=== PATIENT | female | born 2000 | race Caucasian/White ===

== ENCOUNTER 2022-12-09 18:52 | Emergency (ER) | payer OTHER, BC, SELFPAY ==
[2022-12-09 18:58] VITALS: BP 127/64; PULSE 108; RESP 18; TEMP 37.2; O2SAT 98; BMI 23.3
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
[2022-12-09 19:30] VITALS: BP 117/76; PULSE 96; RESP 18; O2SAT 98
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
== END 2022-12-09 19:48 | disposition home or self-care (01) ==
LOC: ED 19:24
PROVIDERS: Emergency Provider Emergency Medicine; PCP Pediatrics
DX: T23.201A Burn of second degree of right hand, unspecified site, initial encounter (principal); X15.2XXA Contact with hotplate, initial encounter
CPT/HCPCS: 99283

== ENCOUNTER 2024-03-04 07:44 | Day surgery (SDC) | payer BC, SELFPAY ==
[2024-03-04] VITALS (13 sets, daily range): BP systolic 91–133; BP diastolic 66–89; PULSE 76–124; RESP 16; TEMP 36.3–36.6; O2SAT 93–99; BMI 27.8
[2024-03-04 08:17] LABS: Ur HCG Qualitative* Negative (Negative)
--- NOTE | 2024-03-04 08:22 | W.PM.H&PU ---
History & Physical Update History & Physical Update H&P Reviewed and patient assessed: No changes noted H&P Updates: Kyeshawn continues to desire permanent sterilization. No interval changes since the last time we spoke in clinic. His parents are aware and I will be updated after the surgery. Plan is for bilateral salpingectomy. I will be performing a pap smear when he is under general anesthesia to minimize the # of conscious pelvic exam he'll need.
[2024-03-04 08:25] LABS: Hemoglobin* 14.3 gm/dL (12.0-16.0)
[2024-03-04] MEDS: LACTATED RINGERS 1000 ML 1,000 ML 100 ML IV ×2 (08:41→09:58)
[2024-03-04] MEDS: SODIUM CHLORIDE 0.9 % (FLUSH) 10 ML SYRINGE IVF (08:41)
--- NOTE | 2024-03-04 09:26 | W.ANESCHARGE ---
Anesthesia Charges Start Date/Time Anesthesia Start Date: 03/04/24 Anesthesia Start Time: 09:30 Stop Date/Time Anesthesia Stop Date: 03/04/24 Anesthesia Stop Time: 10:48
[2024-03-04] MEDS: BUPIVACAINE 0.5 %/EPI 1:200K 30 ML INJECTION (10:12)
--- NOTE | 2024-03-04 10:37 | PM.GYNPRLA ---
Procedure Pre-op/Post-op diagnoses: Pre-Op/Post-Op Diagnoses Operation Date: 03/04/24 09:20 <No data on this case meets the specified criteria> Procedure: Procedures Operation Date: 03/04/24 09:20 Actual Procedure Side Surgeon p Laparoscopic Bilateral Salpingectomy, PAP Smear Bilateral Amanda B MD [employer] Tender: China Garber Estimated blood loss (mL): 5 Anesthesia Type: General and Local Complications: none Specimen: other (1. Bilateral fallopian tube 2. Pap smear ) Findings: Exam under anesthesia: Mons normal, clitoris normal, urethral meatus normal. Labia minora and majora normal in appearance bilaterally. Perineum and anus normal appearance. Vaginal introitus normal appearance. Vaginal pink and well rugated with scant white discharge. Cervix pink and without lesion. Bimanual exam reveals uterus to be soft, nontender, mobile, anteverted, of normal size and texture. No palpable adnexal masses or tenderness. Laparoscopy: Disposition: PACU Narrative: Preoperative diagnosis: Keyshawn is a 23-year-old who desires permanent sterilization. Postoperative diagnosis: Same. Procedure: Laparoscopic bilateral salpingectomy, pap smear Anesthesia: General endotracheal, Local Urine output: 100 mL clear urine IVF: 1000 mL Procedure: Patient was taken to the operating room where general anesthetic was found to be adequate. She was placed in the dorsal lithotomy position and an exam under anesthesia was performed with findings stated above. She was then prepped and draped in a normal sterile manner. I had requested to do a pap smear prior to vaginal prep. Unfortunately, the prep was done prior to informing me to do the pap. Decision made to perform pap at the end of the procedure with the understanding that it might increase risk of insufficient results. A Guardado catheter was then placed. A large sponge stick was placed into the vagina to be used as a manipulator was then placed. Attention was then turned to performing the laparoscopic portion of the procedure. All incisions were injected with 1% lidocaine with epi prior to incision. A vertical 5 mm infraumbilical, incision, was made and a 5 mm trocar placed under direct visualization with the laparoscope. 5 mm camera was placed within the 5 mm Fios Kii trocar, and advanced under direct visualization through the anterior abdominal wall into the peritoneal cavity, while tenting up the anterior abdominal wall. The trocar was removed. The balloon was inflated, holding the port in place. Pneumoperitoneum was achieved. Survey of the abdomen and pelvis revealed the above-noted findings. Two additional port sites were created. The first was in the patient's left lower quadrant, just superomedial to the left ASIS. The second was a hand's breath superior to and slightly medial to the first. Each was infiltrated with small amount of lidocaine prior to incision. A 5 mm incision was made at each site, after assuring that large vessels were out of harm's way. A 5 mm Fios Kii port was inserted at each site, under direct visualization and without complication. The balloon on each of the 3 ports was inflated, holding each in place. The left fallopian tube was grasped with a sliding grasper. The left fallopian tube was removed from the broad ligament using the LigaSure dissecting forceps starting at the fimbriated end of the tube. Sequential pedicles were then formed to the level of the cornua. The tube was then removed at the cornua and removed from the abdomen through the left lower quadrant port. The right fallopian tube was removed in a similar manner. Excellent hemostasis was noted of all pedicles. The trocars were then removed under direct visualization. The CO2 gas was allowed to escape the infraumbilical port prior to its removal. All incisions were reapproximated using 4-0 Monocryl in a running subcuticular manner. Exofin was applied over each incision. The vaginal manipulator and Guardado catheter were removed. Speculum inserted vaginally and pap smear obtained. Speculum removed. The patient tolerated this procedure well. Sponge, lap and instrument counts were correct x2 at the end of the procedure and the patient was taken to the recovery area in stable condition. Debrief performed and specimen reviewed.
--- NOTE | 2024-03-04 10:48 | W.ANESCHARGE ---
Anesthesia Charges Start Date/Time Anesthesia Start Date: 03/04/24 Anesthesia Start Time: 09:30 Stop Date/Time Anesthesia Stop Date: 03/04/24 Anesthesia Stop Time: 10:48
[2024-03-04] MEDS: HYDROmorphone 0.5 mg/0.5 ml inj IVP (11:02)
[2024-03-04] MEDS: ACETAMINOPHEN 500 MG TABLET 1000 MG PO (11:45)
[2024-03-04] MEDS: OXYCODONE 5 MG TABLET PO (11:45)
[2024-03-18 15:04] LABS: PAP Reflex Billing Y; Pap Test Reviewed by Path Done
== END 2024-03-04 12:31 | disposition home or self-care (01) ==
LOC: OR 07:48
PROVIDERS: PCP Family Medicine; Visit Provider Obstetrics & Gynecology
PROC: (CPT 58661; principal; 2024-03-04 09:15)
DX: Z30.2 Encounter for sterilization (principal)
CPT/HCPCS: 58661; 00840; 00851; 36415; 81025; 85018; 86850; 86900; 86901; 88141; 88142; 88302; A9270; J0330; J1170; J1885; J2250; J2405; J2704; J2710; J3010; J3490; J7120

== ENCOUNTER 2024-05-04 23:15 | Emergency (ER) | payer BC, SELFPAY ==
--- NOTE | 2024-05-04 23:31 | CRLHL7_ITS ---
For Patients: As a result of the Century Cures Act, medical imaging exams and procedure reports are released immediately into your electronic medical record. You may view this report before your referring provider. If you have questions, please contact your health care provider. INDICATION: Concerned she has piece of jewelry in throat. TECHNIQUE: Chest 1 view. COMPARISON: None. FINDINGS: The patient`s neck is rotated with visualization of the hyoid bone. There is a small faint density projected over the right lower neck/trachea at the level of C6. Low lung volumes with bibasilar atelectasis. No focal consolidation, pleural effusion, or pneumothorax. Normal heart size and pulmonary vascularity. The bones are unremarkable. IMPRESSION: 1. No acute cardiopulmonary findings. 2. Small faint density projected over the right lower neck/trachea could potentially represent a foreign body. Dictated by Lenora Mandel MD @ 05/05/2024 12:25:28 AM (Electronically Signed)
[2024-05-04 23:32] VITALS: BP 105/67; PULSE 105; RESP 20; TEMP 36.8; O2SAT 99; BMI 26.6
--- NOTE | 2024-05-04 23:43 | ED.GENADULT ---
HPI - General Adult General Date Seen: 05/04/24 Chief complaint: Skin/Abscess/Foreign Body Stated complaint: food stuck in throat, unable to speak Time Seen by Provider: 05/04/24 23:31 Source: patient Mode of arrival: ambulatory Limitations: no limitations History of Present Illness HPI narrative: Patient is a 23-year-old female presenting to the emergency department with her friend for sensation of foreign body stuck in her throat. She states she lost her nose piercing a week ago and believes he got caught in her sinuses and now she swallowed it. Symptoms started shortly after she used a THC vape. Her friend who is with her states this is 1st time the patient has smoked in months and she has had same symptoms last time she smoked. The symptoms were not as severe but also she smoked more this time. She has been able to tolerate oral fluids and her secretions. Denies any throat pain. She states it is hard to talk. She appears very anxious. States it is hard to talk or take a deep breath Related Data Home Medications ?Medication ?Instructions ?Recorded ?Confirmed hydroxyzine pamoate 25 mg capsule 25 mg PO QPM PRN 12/09/22 05/04/24 ziprasidone HCl 80 mg capsule 80 mg PO DAILY 03/03/24 05/04/24 duloxetine 20 mg capsule,delayed 20 mg PO BID 05/04/24 05/04/24 release lisdexamfetamine 40 mg capsule 40 mg PO QAM 05/04/24 05/04/24 Allergies Allergy/AdvReac Type Severity Reaction Status Date / Time No Known Drug Allergies Allergy Verified 05/04/24 23:34 [facility] Medical History Controlled substance agreement signed ?Z79.899 - Other supervisor intermediates (current) drug therapy (ICD-10) Dysmenorrhea ?N94.6 - Dysmenorrhea, unspecified (ICD-10) Asperger's disorder ?F84.5 - Asperger's syndrome (ICD-10) Unwanted fertility ?Z30.09 - Encounter for other general counseling and advice on contraception (ICD-10) Severe episode of recurrent major depressive disorder, with psychotic features ?F33.3 - Major depressive disorder, recurrent, severe with psychotic symptoms (ICD-10) Personality disorder ?F60.9 - Personality disorder, unspecified (ICD-10) Autism spectrum disorder ?F84.0 - Autistic disorder (ICD-10) Anxiety ?F41.9 - Anxiety disorder, unspecified (ICD-10) Depression ?F32.A - Depression, unspecified (ICD-10) Gender dysphoria ?F64.9 - Gender identity disorder, unspecified (ICD-10) ADHD (attention deficit hyperactivity disorder) ?F90.9 - Attention-deficit hyperactivity disorder, unspecified type (ICD-10) Surgical History History of tonsillectomy and adenoidectomy (2008) ?Z90.89 - Acquired absence of other organs (ICD-10) Family History (Updated 12/20/23 @ 13:25 by Elen Dean) Paternal Grandmother Heart disease High cholesterol Paternal Grandfather Diabetes Heart disease High cholesterol Alcohol dependence Maternal Grandfather Alcohol dependence Aunt Depression Social History Smoking Status: Former smoker Do you use any of these nicotine containing products: None Second hand tobacco smoke exposure: No How often do you have a drink containing alcohol: 2-4 times a month Alcohol type: beer and hard liquor AUDIT-C Alcohol total score: 2 Non-prescribed substance use: marijuana (any form) Caffeine: Yes (3-4 cups/day, energy drink) Are you using contraception or practicing any form of control: No Exam Narrative: Exam Narrative: Const: Well-nourished, Well-developed, appears anxious Eyes: PERRL, no conjunctival injection, and symmetrical lids HENT: Atraumatic external nose and ears. Moist mucous membranes. Neck: Symmetric, trachea midline, No thyromegaly. CVS: Tachycardic, No murmurs or gallops. Peripheral pulses 2+ and equal in all extremities RESP: Unlabored respiratory effort. Clear to auscultation bilaterally. GI: Nontender/Nondistended, No rebound or guarding. MSK:Extremities w/o deformity, Normal Active ROM Skin: Warm, Dry. No rashes or lesions. Neuro: Normal Muscle tone, No focal neurological deficits. Psych: Awake, Alert, & Oriented x3. Const: Vital Signs, click to edit/add: Vital Signs - 24 hr 05/04/24 23:32 05/05/24 00:16 05/05/24 00:17 Temperature 98.2 F 98.2 F 98.2 F Pulse Rate [Right Pulse Oximeter] 105 H 99 99 Respiratory Rate 20 20 20 Blood Pressure [Le ft Upper Arm] 105/67 110/70 110/70 Pulse Oximetry 99 99 Oxygen Delivery Me thod Room Air Room Air Course Vital Signs Vital signs: Initial Vital Signs Temperature 98.2 F 05/04/24 23:32 Temperature Source Temporal Artery Scan 05/04/24 23:32 Pulse Rate 105 H 05/04/24 23:32 Respiratory Rate 20 05/04/24 23:32 Blood Pressure 105/67 05/04/24 23:32 Blood Pressure Mean 79 05/04/24 23:32 Blood Pressure Position Sitting 05/04/24 23:32 Pulse Oximetry 99 05/04/24 23:32 Oxygen Delivery Method Room Air 05/04/24 23:32 Vital Signs Temperature 98.2 F 05/04/24 23:32 Pulse Rate 105 H 05/04/24 23:32 Respiratory Rate 20 05/04/24 23:32 Blood Pressure 105/67 05/04/24 23:32 Pulse Oximetry 99 05/04/24 23:32 Oxygen Delivery Method Room Air 05/04/24 23:32 Temperature 98.2 F 05/05/24 00:17 Pulse Rate 99 05/05/24 00:17 Respiratory Rate 20 05/05/24 00:17 Blood Pressure 110/70 05/05/24 00:17 Pulse Oximetry 99 05/05/24 00:16 Oxygen Delivery Method Room Air 05/05/24 00:16 Medical Decision Making MDM Narrative Medical decision making narrative: Patient is a 23-year-old female presenting for concerns of something stuck in her throat. She is tolerating p.o. intake and her secretions. She appears to be very anxious and based on history it seems like all her symptoms are related to her being under the influence of marijuana. Seems very unlikely her nose ring would get stuck in her sinus and then go down her throat. Will do a chest x-ray though to look for possible jewelry in her throat. She did have an episode she got very anxious again and was stained she cannot breathe. She than stated the pain is now lower in her chest. Her symptoms seem better at this time but she still was having some difficulty speaking. I again asked if she is having sore throat or any in a could be signs of airway compromise she states no. She is satting 99% on room air and is having no increased respiratory effort. This by believe he is safe for discharge and all her symptoms is secondary to the marijuana use. Patient did not want to wait for the official read Official read came back after patient was discharged. They set up up small to faint density over the right lower neck that could potentially represent a foreign body. Considering the piece of jewelry was metal and again was lost a week ago this seems very unlikely to represent the foreign body that she is concerned about. Discharge Plan Discharge Clinical Impression: No foreign body found on evaluation Patient Disposition: Home w/ Parent or Adult Condition: Stable Additional Instructions: I recommend against any further marijuana use. Return to emergency department for new or worsening symptoms. Chest x-ray showed no signs of any foreign bodies in your esophagus or throat. Prescriptions: No Action hydroxyzine pamoate 25 mg capsule 25 mg PO QPM PRN ziprasidone HCl 80 mg capsule 80 mg PO DAILY duloxetine 20 mg capsule,delayed release(DR/EC) 20 mg PO BID lisdexamfetamine 40 mg capsule 40 mg PO QAM Follow Up/Referrals: Josephine Mo MD [Primary Care Provider] - Stand Alone Forms: [employer] Info Instructions
[2024-05-05 00:16] VITALS: BP 110/70; PULSE 99; RESP 20; TEMP 36.8; O2SAT 99
[2024-05-05 00:17] VITALS: BP 110/70; PULSE 99; RESP 20; TEMP 36.8
== END 2024-05-05 00:17 | disposition home or self-care (01) ==
PROVIDERS: Emergency Provider Student in an Organized Health Care Education/Training Program; PCP Family Medicine
DX: Z71.1 Person with feared health complaint in whom no diagnosis is made (principal)
CPT/HCPCS: 71045; 99283